=== PATIENT | female | born 1995 | race African-American/Black ===

== ENCOUNTER 2018-04-29 09:30 | Emergency (ER) | payer OTHER ==
[~2018-04-29] VITALS: Ht 172.7 cm; Wt 72.6 kg
[2018-04-29 09:30] VITALS: BP 151/72
[2018-04-29] MEDS ORDERED: BUPIVACAINE 0.5 % PF 150 MG/30 ML VIAL ONE (09:45)
--- NOTE | 2018-04-29 09:54 | NUR ---
MEDICATION GIVEN BY DR. SHEN
--- NOTE | 2018-04-29 09:54 | NUR ---
BUPIVACAINE ORDER CAN'T BE VIEWED IN THE [facility]
[2018-04-29] MEDS ORDERED: BUPIVACAINE HCL/PF 50 MG/10 ML VIAL IJ ONE (10:00)
== END 2018-04-29 11:39 | disposition home or self-care (01) ==
LOC: ER 09:33
DX: S62.613A Displaced fracture of proximal phalanx of left middle finger, initial encounter for closed fracture (principal); S60.451A Superficial foreign body of left index finger, initial encounter; W25.XXXA Contact with sharp glass, initial encounter; Y93.89 Activity, other specified; Y92.89 Other specified places as the place of occurrence of the external cause; Y99.8 Other external cause status
CPT/HCPCS: 73140-TC; A4606; J3490; Z7610